=== PATIENT | female | born 1965 | race Caucasian/White ===

== ENCOUNTER → 2017-08-14 | Outpatient (REF) | LOC: M SMT 11:19 | DX: M50.30 Other cervical disc degeneration, unspecified cervical region (principal); M17.11 Unilateral primary osteoarthritis, right knee ==

== ENCOUNTER → 2017-10-30 | Outpatient (CLI) | payer OTHER | LOC: M RAD 09:37 | DX: M17.11 Unilateral primary osteoarthritis, right knee (principal) | CPT/HCPCS: 76882 ==

== ENCOUNTER → 2018-01-17 | Outpatient (CLI) | payer OTHER | LOC: M PLARAD 10:37 | DX: M54.2 Cervicalgia (principal); Z53.9 Procedure and treatment not carried out, unspecified reason ==

== ENCOUNTER → 2018-01-27 | Outpatient (CLI) | payer OTHER ==
[2018-01-27 20:09] LABS: HEMATOCRIT 42.6 % (36.0-47.0); HEMOGLOBIN 13.9 g/dl (12.0-15.5); MEAN CORPUSCULAR HEMOGLOBIN 28.3 pg (27.0-33.0); MEAN CORPUSCULAR HGB CONC 32.6 g/dl (32.0-36.5); MEAN CORPUSCULAR VOLUME 86.8 fl (80.0-96.0); PLATELET COUNT, AUTOMATED 293 10^3/uL (150-450); RED BLOOD COUNT 4.91 10^6/uL (4.00-5.40); RED CELL DISTRIBUTION WIDTH 13.3 % (11.5-14.5); WHITE BLOOD COUNT 9.3 10^3/uL (4.0-10.0)
[2018-01-27 20:28] LABS: ALBUMIN 3.7 GM/DL (3.2-5.2); ALBUMIN/GLOBULIN RATIO 0.93 (1.00-1.93); ALKALINE PHOSPHATASE 64 U/L (45-117); ALT/SGPT 54 U/L (12-78); ANION GAP 7 MEQ/L (8-16); AST/SGOT 32 U/L (7-37); BILIRUBIN,TOTAL 0.5 MG/DL (0.2-1.0); BLOOD UREA NITROGEN 14 MG/DL (7-18); CALCIUM LEVEL 8.9 MG/DL (8.5-10.1); CARBON DIOXIDE LEVEL 30 MEQ/L (21-32); CHLORIDE LEVEL 106 MEQ/L (98-107); CREATININE FOR GFR 0.53 MG/DL (0.55-1.30); GLOMERULAR FILTRATION RATE > 60.0 (>51); GLUCOSE, FASTING 83 MG/DL (70-100); POTASSIUM SERUM 4.4 MEQ/L (3.5-5.1); SODIUM LEVEL 143 MEQ/L (136-145); THYROID STIMULATING HORMONE 0.889 uIU/ML (0.358-3.740); TOTAL PROTEIN 7.7 GM/DL (6.4-8.2)
== END ==
LOC: M LRY 14:54
DX: I10 Essential (primary) hypertension (principal); R79.89 Other specified abnormal findings of blood chemistry; R05 Cough
CPT/HCPCS: 84443

== ENCOUNTER → 2018-02-07 | Outpatient (CLI) | payer OTHER ==
--- NOTE | 2018-02-12 09:51 | REP ---
MRI CERVICAL SPINE WITHOUT CONTRAST: HISTORY: Neck pain. Question stenosis. No comparison MRI study. Comparison radiographs August 14, 2017. TECHNIQUE: Sagittal and axial T1- and T2-weighted scans are acquired in the usual fashion with and without fat saturation. Sequences include spin echo, turbo spin-echo, and STIR imaging sequences. FINDINGS: There is reversal of the normal cervical lordosis. Cervical vertebral body heights are preserved. Cervical cord is normal in signal intensity and caliber. Craniocervical junction is unremarkable. At C2-3, no abnormalities noted on axial or sagittal images. At C3-C4, there is a small central disc protrusion which subtly indents the ventral margin of the cervical cord in the midline on axial images. No central canal stenosis is seen. No neural foraminal narrowing is noted. At C4-C5, there is a left paracentral focal disc protrusion, which also indents the left ventral margin of the cervical cord. No neural foraminal narrowing or central canal stenosis is noted. At C5-C6, there is a right paracentral focal disc protrusion more broad-based. This produces compression of that right ventral margin of the cord and contributes to mild central canal stenosis. The cord is displaced dorsally. Mid sagittal AP dimension of the thecal sac at this level is 8.7 mm. There is uncovertebral spurring present bilaterally at C5-6 producing neural foraminal encroachment. At C6-C7, there is diffuse disc bulging most pronounced in the left. This flattens the ventral margin of the cord somewhat. No overall central canal stenosis is seen. There is minimal uncovertebral spurring bilaterally at C6-7. At C7-T1, there is no significant abnormality. IMPRESSION: Degenerative spondylosis. Multilevel disc protrusions as described above involving C3-4, C4-5, C5-6 and with more diffuse disc bulging at C6-7. Central canal stenosis and bilateral neural foraminal narrowing is present at C5-6. Electronically Signed by Ulysses Sifuentes MD 02/12/2018 10:29 A
== END ==
LOC: M RAD 18:06
PROVIDERS: ATTEND Orthopaedic Surgery
DX: M54.2 Cervicalgia (principal)

== ENCOUNTER 2018-03-07 10:07 | Outpatient (RCR) | payer OTHER | END 2018-03-20 | LOC: M PT 10:07 | PROVIDERS: ATTEND Physician Assistant | DX: M48.02 Spinal stenosis, cervical region (principal) ==

== ENCOUNTER → 2018-08-11 | Outpatient (CLI) | payer OTHER ==
[2018-08-11 14:56] LABS: BLOOD UREA NITROGEN 12 MG/DL (7-18); CALCIUM LEVEL 9.6 MG/DL (8.5-10.1); CARBON DIOXIDE LEVEL 31 MEQ/L (21-32); CHLORIDE LEVEL 106 MEQ/L (98-107); CHOLESTEROL LEVEL 222 MG/DL (<200); CREATININE FOR GFR 0.57 MG/DL (0.55-1.30); GLOMERULAR FILTRATION RATE > 60.0 (>51); GLUCOSE, FASTING 97 MG/DL (70-100); HDL CHOLESTEROL 37 MG/DL (>40); LDL CHOLESTEROL 148 MG/DL (<100); NON-HDL-C 185 MG/DL; POTASSIUM SERUM 4.4 MEQ/L (3.5-5.1); SODIUM LEVEL 142 MEQ/L (136-145); TRIGLYCERIDES LEVEL 187 MG/DL (<150)
== END ==
LOC: M LRY 11:06
PROVIDERS: ATTEND Family Medicine
DX: E78.2 Mixed hyperlipidemia (principal); I10 Essential (primary) hypertension